=== PATIENT | female | born 2000 | race African-American/Black ===

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

== ENCOUNTER 2019-04-08 15:24 | Observation (INO) ==
[2019-04-08] MEDS ORDERED: NORMAL SALINE 1,000 ML IV ONE ×2 (16:29→19:42)
[2019-04-08 16:47] LABS: Hematocrit 41.4 % (37.0-47.0); Hemoglobin 13.7 gm/dL (12.5-16.0); Mean Cell Volume 84.1 fl (78-100); Mean Corpuscular Hemoglobin 27.8 pg (27-31); Mean Corpuscular Hgb Conc 33.1 g/dl (32-36); Mean Platelet Volume 10.1 fl (8-12.5); Neutrophil # 11.5 K/mm3 (1.3-6.0); Neutrophil % 81.5 % (42-75.0); Platelet Count 413 K/mm3 (150-450); Red Blood Count 4.92 M/mm3 (4.2-5.4); Red Cell Distribution Width 13.9 % (11.5-14.0); White Blood Count 14.1 K/mm3 (4.0-10.5)
--- NOTE | 2019-04-08 16:56 | ERNOTE ---
<Meredith Oliva - Last Filed: 04/08/19 21:07> Date of Service: 04/08/19 Time Seen by Provider: 04/08/19 16:16 Stated Complaint: sob Immunizations: IMMUNIZATION HX Immunizations Up to Date Yes History of Influenza Vaccine No Hx Pneumococcal Vaccination No Allergies/Adverse Reactions: Allergies No Known Allergies Allergy (Verified 04/08/19 22:26) Home Medications: HOME MEDICATIONS levonorgestrel 20 mcg/24 hours (5 yrs) 52 mg intrauterine device INTRAUTERINE ea 02/19/19 [Last Taken Unknown] nifedipine ER 60 mg tablet,extended release 60 mg PO DAILY #90 tab 02/19/19 [Last Taken Unknown] - History of Present Ilness Narrative: Patient is a 18 years old female who presented complaining of shortness of breath, coughing blood, since last evening. Patient is 5 months , having an IUD for 2 months, and being a smoker. On arrival patient was found to be hypoxic at 89% and tachycardic in the 140s. She denies having previous C- section, and no history of DVT, no family history of vascular problems. Timing: constant Severity: moderate Review of Systems - Review of Systems Constitutional: Present: no symptoms reported. Absent: fever, chills EYE: Present: no symptoms reported ENT: Present: no symptoms reported Respiratory: Present: shortness of breath, cough Gastrointestinal/Abdominal: Present: no symptoms reported Genitourinary: Present: no symptoms reported Musculoskeletal: Present: no symptoms reported Skin: Present: no symptoms reported Neurological: Present: no symptoms reported Endocrine: Present: no symptoms reported Hematologic/Lymphatic: Present: no symptoms reported Psych: Present: no symptoms reported All Other Systems: All systems neg except as marked Medical History (Updated 04/08/19 @ 21:00 by Meredith Oliva MD) Gestational diabetes (Acute) Pt did not bring any FSBS. Anemia GERD (gastroesophageal reflux disease) Insufficient care Noncompliance Recurrent UTI Surgical History: Surgical History (Updated 01/31/18 @ 14:49 by Rommel Couch RN) No history of previous surgery Family History: Family History (Updated 01/31/18 @ 14:51 by Rommel Couch RN) Brother Alive and well Father Alive and well Mother Diabetes diet controlled Sister Alive and well Social History: (Last Reviewed 04/08/19 @ 15:52 by Barbie Castellon RN) Social History: Marital status: Single household members: family number of children: 1 current occupational status: unemployed current occupation: Homemaker Highest education level completed: high school graduate Service: No Tobacco: Smoking Status: Current some day smoker Alcohol: alcohol intake: never Substance Use: substance use type: does not use Dietary Habits: caffeine: No Exercise: frequency: daily Physical Exam - Physical Exam General Appearance: Present: wd/wn, moderate distress Ears, Nose, Throat: Present: normal ENT inspection Neck: Present: normal inspection Respiratory: Present: no respiratory distress, decreased breath sounds, other - tachypneic Cardiovascular/Chest: Present: no murmur, tachycardia Gastrointestinal/Abdominal: Present: normal bowel sounds, nontender, no organomegaly Back Exam: Present: normal inspection, normal range of motion Extremity Exam: Present: normal inspection, normal range of motion Neurological Exam: Present: alert, oriented, normal mood/affect Skin Exam: Present: normal color Lymphatic Exam: Present: no adenopathy Progress - Results and Orders Patient's Lab Results:: I have reviewed the patient's lab results. - Vital Signs Patient's Vital Signs:: I have reviewed the patient's vital signs. Vital Signs: Vital Signs 04/08/19 15:48 Temperature 37.5 C Pulse Rate 140 H Respiratory Rate 26 H Blood Pressure 152/60 H O2 Sat by Pulse Oximetry 90 L - CT/Ultrasound CT/Ultrasound Narrative: X-RAY REPORT ~[id number] CT/CTA Chest~ Exam Date: 04/08/2019 17:36 Ordering Physician: Meredith Oliva MD HISTORY: shortness of breath Additional history from technologist: PATIETNT WITH SHORTNESS OF BREATH SINCE LAST NIGHT. TACHYCARDIC, HYPOXIC UPON ER ARRIVAL. COUGHING UP BLOOD SINCE YESTERDAY. PATIENT RECEIVED 90ML OF ISOVUE-370 VIA 18G IV. TECHNIQUE: Multiple thin-section contrast-enhanced axial CT images of the chest were obtained after rapid infusion of intravenous contrast material, according to pulmonary angiography protocol. Coronal maximal intensity projection (MIP) images were also submitted for interpretation. Dose reduction techniques using the adjustment of the mA and/or kV according to patient size and/or use of AEC or iterative reconstruction were used in the acquisition of this exam. COMPARISONS: None available. FINDINGS: CTA Chest: Pulmonary Arteries: Diagnostic Quality (for pulmonary arteries): Opacification of the pulmonary arterial branches is adequate. The breath hold is adequate. There is streak artifact from contrast material within the superior vena cava, which affects the adjacent pulmonary arteries. No definite filling defects are noted to suggest pulmonary thromboembolism. No definite axial CT image findings of right heart strain. Aorta: Thoracic aorta unremarkable without acute findings. Multiple artifacts related to cardiac motion and streak artifact from contrast in the adjacent superior vena cava noted. Mediastinum: No mediastinal mass or lymphadenopathy noted. There is a triangular soft tissue density structure within the anterior mediastinum most likely residual thymic tissue in a patient of this age. Heart: No significant pericardial effusion noted. Lung Parenchyma: The lung parenchyma demonstrates no focal consolidation. The lungs are symmetrically hyperinflated, and there is relatively hyperlucent appearance of the lungs diffusely throughout. Central Airways: The trachea appears to be grossly patent. Peripheral bronchial wall thickening noted. Opacification of the bilateral lower lobe basal segmental subsegmental bronchi suggestive of mucus plugging. Pleural Spaces: No pneumothorax or pleural effusions present. Bones: Bones are grossly intact. Chest Wall/Axillae: Anterior chest wall is grossly unremarkable. Axillary regions are also grossly normal. Upper Abdomen: Visualized portions of the liver demonstrates multiple small enhancing lesions. Decreased attenuation of liver parenchyma suggestive of fatty liver. IMPRESSION: 1. Negative for acute pulmonary thromboembolism. 2. Negative for acute thoracic aortic finding. 3. Hyperlucent and hyperinflated lungs, with peripheral bronchial wall thickening noted. Correlate clinically for acute or chronic bronchitis or reactive airways disease. Mucus plugging of the bilateral lower lobe posterior subsegmental bronchi. 4. Anterior mediastinal structure most likely thymic tissue, but consider follow-up chest CT in 3-6 months. 5. Incidental note of fatty liver, with multiple small enhancing lesions. These are of unknown clinical significance, and may reflect multiple small flash filling hemangiomas or focal nodular hyperplasia, but if the patient is on control pills, consider possible hepatic adenomas. Recommend further evaluation of the liver by MRI of the abdomen without and with contrast liver mass protocol on a nonemergent basis. If MRI is contraindicated, recommend CT of the abdomen without and with contrast liver mass protocol. Electronically signed by Rickey Man M.D.. Rickey Man MD Dict: 04/08/191814 Typed: 04/08/19 1815/ 04/08/19 1840 04/08/19 1842 , - Progress/Reassessment Chief Complaint: Upper Respiratory Symptoms Progress Note-Subjective: 04/08/19 19:20 - CT chest is negative for PE, second look at initial EKG is suspicious for atrial flutter. I am repeating EKG and giving diltiazem to patient. - Transfer of Care Physician Sign Out: Meredith Oliva Receiving Physician: Marcus Fernandez Plan - Plan Plan: Patient is a 18 years old female who presented tachycardic, tachypneic, hypoxic, CT chest ruled out pulmonary emboli however revealed bilateral mucous plug in the lower lobe, this explain her hypoxia. She was diagnosed with pneumonia and put on ceftriaxone, and azithromycin. She received in the ED 2 L of IV fluid which improved her tachycardia from the 140s to the 120s. At patient was signed out to Dr. Fernandez at 910 pm. Departure Clinical Impression: Tachycardia, Hypoxia, Bilateral pneumonia, Mucus plugging of bronchi - Departure Disposition: Still a patient Condition: Serious <Marcus Fernandez - Last Filed: 04/09/19 06:35> Immunizations: IMMUNIZATION HX Immunizations Up to Date Yes History of Influenza Vaccine No Hx Pneumococcal Vaccination No Medical History (Updated 04/08/19 @ 21:09 by Meredith Oliva MD) Gestational diabetes (Acute) Pt did not bring any FSBS. Anemia GERD (gastroesophageal reflux disease) Insufficient care Noncompliance Recurrent UTI Surgical History: Surgical History (Updated 01/31/18 @ 14:49 by Rommel Couch RN) No history of previous surgery Family History: Family History (Updated 01/31/18 @ 14:51 by Rommel Couch RN) Brother Alive and well Father Alive and well Mother Diabetes diet controlled Sister Alive and well Social History: (Last Reviewed 04/08/19 @ 22:26 by Pavel Billy RN) Social History: Marital status: Single household members: family number of children: 1 current occupational status: unemployed current occupation: Homemaker Highest education level completed: high school graduate Service: No Tobacco: Smoking Status: Current some day smoker Alcohol: alcohol intake: never Substance Use: substance use type: does not use Dietary Habits: caffeine: No Exercise: frequency: daily Physical Exam - Physical Exam General Appearance: Present: wd/wn, moderate distress Respiratory: Present: decreased breath sounds - rough sounds Cardiovascular/Chest: Present: no murmur, tachycardia Progress - Results and Orders Patient's Lab Results:: I have reviewed the patient's lab results. - Vital Signs Vital Signs: Vital Signs 04/08/19 15:48 04/08/19 15:51 04/08/19 16:21 Temperature 37.5 C Pulse Rate 140 H 73 133 H Respiratory Rate 26 H 22 H 24 H Blood Pressure 152/60 H 162/83 H O2 Sat by Pulse Oximetry 90 L 94 92 L 04/08/19 16:51 04/08/19 17:25 04/08/19 17:51 Temperature Pulse Rate 130 H 127 H Respiratory Rate 20 Blood Pressure 137/68 O2 Sat by Pulse Oximetry 93 93 04/08/19 19:30 Temperature Pulse Rate 124 H Respiratory Rate 24 H Blood Pressure 137/68 O2 Sat by Pulse Oximetry 93 - EKG EKG #1 EKG: supraventricular tachycardia - sinus tach, nonspecific ST T wave changes EKG read: Reviewed by me - Initially seen by Dr. Oliva EKG #2 EKG: supraventricular tachycardia - sinus tach, nonspecific ST T wave changes EKG read: Reviewed by me - Initially seen by Dr. Oliva. - Progress/Reassessment Progress:: Unchanged Progress Note-Subjective: 04/08/19 21:[address] Oliva and we felt that the CT had significant evidence for pneumonia with bronchial plugging. 04/08/19 21:[address] Benitez and he agrees with admission.
[2019-04-08 17:00] LABS: INR 1.04 INR (0.92-1.08); Prothrombin Time (Patient) 10.3 Seconds (9.1-10.7)
[2019-04-08 17:06] LABS: Troponin I Less than 0.017 ng/mL (0.00-0.10)
[2019-04-08 17:11] LABS: ALT 12 U/L (19-67); AST 14 U/L (0-48); Albumin * 4.3 gm/dl (3.4-5.0); Alkaline Phosphatase * 151 U/L (50-170); Anion Gap 18.3 mmol/L (6.8-13.8); Bilirubin, Total 0.5 mg/dL (0.0-1.1); Blood Urea Nitrogen 9 mg/dL (3-23); CK Total * 140 U/L (0-259); CKMB 0.9 ng/mL (0.0-9.0); Ca. Corrected For Albumin 8.3 mg/dL (8.4-10.2); Calcium * 8.9 mg/dL (7.9-10.9); Carbon Dioxide 22.2 mmol/L (24-32.6); Chloride 98 mmol/L (97-106); Glucose * 315 mg/dL (70-110); Potassium 3.5 mmol/L (3.4-4.6); Sodium 135 mmol/L (132-142); Total Protein 8.3 gm/dL (6.2-8.2)
[2019-04-08 17:20] LABS: Urine Bilirubin Negative (NEGATIVE); Urine Blood Negative /ul (NEGATIVE); Urine Ketone 15 mg/dL (NEGATIVE); Urine Nitrite Negative (NEGATIVE); Urine Protein Negative (NEGATIVE); Urine Specific Gravity 1.015 SP.GR. (1.005-1.010); Urine Urobilinogen Normal (NORMAL)
[2019-04-08 17:27] LABS: Urine Appearance Clear (CLEAR); Urine Bacteria 1+; Urine Color Yellow; Urine RBC None Seen /hpf (0-5); Urine WBC None Seen /hpf (0-5)
[2019-04-08] MEDS ORDERED: DILTIAZEM HCL 5 MG/ML VIAL IV ONE ×2 (19:32→19:47)
[2019-04-08 19:58] LABS: Cocaine Ur Negative (NEGATIVE); Urine Barbiturate Negative (NEGATIVE); Urine Benzodiazepines Negative (NEGATIVE); Urine Opiates Negative (NEGATIVE); Urine PCP Negative (NEGATIVE)
[2019-04-08 19:59] LABS: Urine THC Positive (NEGATIVE)
[2019-04-08] MEDS ORDERED: cefTRIAXone SODIUM 1,000 MG/100 ML BAG IV ONE (21:03)
[2019-04-08] MEDS ORDERED: ALBUTEROL SULFATE/IPRATROPIUM 3 ML NEBU IH SCH (23:45)
[2019-04-09] MEDS: ALBUTEROL SULFATE/IPRATROPIUM 3 ML NEBU IH SCH ×3 (00:20→12:49)
[2019-04-09] MEDS ORDERED: predniSONE 20 MG TABLET PO ONE (08:41)
[2019-04-09] MEDS ORDERED: NIFEdipine 30 MG TAB.SR.24H PO SCH (09:00)
[2019-04-09] MEDS ORDERED: AZITHROMYCIN 250 MG TABLET PO ONE (09:00)
[2019-04-09] MEDS: ACETAMINOPHEN 500 MG TABLET PO PRN ×2 (09:55)
--- NOTE | 2019-04-09 11:45 | HPDIS ---
Chief Complaint - Chief Complaint Date of Service: 04/09/19 Time of Service: 08:15 Chief Complaint: Shortness of breath, dizziness History of Present Illness: Ej is a 18 yo female that presented to the [facility] ER with chest pain and shortness of breath. She was initially 89% on room air. She was placed on oxygen to keep sats >93% which took 2lpm. She is about 5 months and there was concern for possible PE. CT was negative for pulmonary embolism but did show mucus plugging present. No pneumonia present. She reports symptoms started within the last two days and were sudden. She denies sick contacts, fever, or chills. Medical History (Updated 04/09/19 @ 11:45 by Thai Benitez DO) Gestational diabetes (Acute) Pt did not bring any FSBS. Anemia GERD (gastroesophageal reflux disease) Insufficient care Noncompliance Recurrent UTI Surgical History: Surgical History (Updated 04/09/19 @ 11:45 by Thai Benitez DO) No history of previous surgery Family History: Family History (Updated 01/31/18 @ 14:51 by Rommel Couch RN) Brother Alive and well Father Alive and well Mother Diabetes diet controlled Sister Alive and well Social History: (Last Reviewed 04/08/19 @ 22:26 by Pavel Billy RN) Social History: Marital status: Single household members: family number of children: 1 current occupational status: unemployed current occupation: Homemaker Highest education level completed: high school graduate Service: No Tobacco: Smoking Status: Current some day smoker Alcohol: alcohol intake: never Substance Use: substance use type: does not use Dietary Habits: caffeine: No Exercise: frequency: daily Review Of Systems (GEN) - Review of Systems Generalized/Overall Review: Present: Weakness. Absent: Chills, Fever EENTM: Present: No Symptoms Reported Respiratory: Present: Cough, Shortness of Breath Cardiac: Present: Chest Pain, Palpitations. Absent: Edema Abdominal: Present: Nausea. Absent: Vomiting, Hematemesis, Abdominal Pain, Constipation Genitourinary: Present: No Symptoms Reported Musculoskeletal: Present: No Symptoms Reported Neurological: Present: No Symptoms Reported Skin: Present: No Symptoms Reported Immunizations: IMMUNIZATION HX Immunizations Up to Date Yes History of Influenza Vaccine No Hx Pneumococcal Vaccination No Allergies/Adverse Reactions: Allergies Allergy/AdvReac Type Severity Reaction Status Date / Time No Known Allergies Allergy Verified 04/08/19 22:26 Home Medications: HOME MEDICATIONS levonorgestrel 20 mcg/24 hours (5 yrs) 52 mg intrauterine device INTRAUTERINE ea 02/19/19 [Last Taken Unknown] nifedipine ER 60 mg tablet,extended release 60 mg PO DAILY #90 tab 02/19/19 [Last Taken Unknown] Azithromycin [Zithromax] 250 mg PO DAILY #4 tab 04/09/19 [Last Taken Unknown] guaiFENesin [Mucinex] 1,200 mg PO BID tablet.sa 04/09/19 [Last Taken Unknown] predniSONE [Prednisone] 2 tab PO DAILY #14 tab 04/09/19 [Last Taken Unknown] Exam - Exam Vital Signs: Vital Signs - Last Taken Temp 36.7 C 04/09/19 10:05 Pulse 107 H 04/09/19 10:05 Resp 20 04/09/19 10:05 BP 148/67 H 04/09/19 10:05 Pulse Ox 95 04/09/19 10:05 Constitutional: Present: Alert, Oriented x3, Cooperative, Other - wearing oxygen via nasal canula Eye Exam: bilateral eye: normal inspection Respiratory: Present: wheezing Cardiovascular/Chest: Present: no murmur, tachycardia Peripheral Pulses: radial (R): 2+, radial (L): 2+ Abdomen: Present: Normal bowel sounds, soft, nontender, nondistended Skin Exam: Present: normal color, warm/dry, no cyanosis Appearance: Present: appropriate appearance, appropriate insight Eye contact: Present: cooperative, good eye contact, normal speech Diagnostic Studies: Abnormal Lab Results 04/08/19 04/08/19 04/08/19 Range/Units 16:40 16:40 16:53 WBC 14.1 H (4.0-10.5) K/mm3 Immature Gran # (Auto) 0.06 H (0.000-0.0310) K/mm3 Neutrophils % 81.5 H (42-75.0) % Lymphocytes % 8.7 L (20-51) % Neutrophils # 11.5 H (1.3-6.0) K/mm3 Lymphocytes # 1.23 L (1.5-3.5) k/mm3 pCO2 (32.0-45.0) mmHg pO2 (83.0-108.0) mmHg HCO3 (21.0-28.0) mmol/L Total CO2 (19.0-24.0) mmol/L Base Excess (-2.0-3.0) mmol/L ABG O2 Sat (Measured) (94.0-98.0) % Carbon Dioxide 22.2 L (24-32.6) mmol/L Anion Gap 18.3 H (6.8-13.8) mmol/L Random Glucose 315 H (70-110) mg/dL Calcium Adj for Albumin 8.3 L (8.4-10.2) mg/dL ALT 12 L (19-67) U/L Total Protein 8.3 H (6.2-8.2) gm/dL Urine Glucose (UA) >=1000 H (NEGATIVE) mg/dL Urine Bacteria 1+ H (NONE) Urine Marijuana (THC) (NEGATIVE) 04/08/19 04/08/19 Range/Units 16:53 17:26 WBC (4.0-10.5) K/mm3 Immature Gran # (Auto) (0.000-0.0310) K/mm3 Neutrophils % (42-75.0) % Lymphocytes % (20-51) % Neutrophils # (1.3-6.0) K/mm3 Lymphocytes # (1.5-3.5) k/mm3 pCO2 27.3 L (32.0-45.0) mmHg pO2 62.3 L (83.0-108.0) mmHg HCO3 17.8 L (21.0-28.0) mmol/L Total CO2 18.7 L (19.0-24.0) mmol/L Base Excess -5.0 L (-2.0-3.0) mmol/L ABG O2 Sat (Measured) 93.0 L (94.0-98.0) % Carbon Dioxide (24-32.6) mmol/L Anion Gap (6.8-13.8) mmol/L Random Glucose (70-110) mg/dL Calcium Adj for Albumin (8.4-10.2) mg/dL ALT (19-67) U/L Total Protein (6.2-8.2) gm/dL Urine Glucose (UA) (NEGATIVE) mg/dL Urine Bacteria (NONE) Urine Marijuana (THC) Positive H (NEGATIVE) Laboratory Results WBC 14.1 K/mm3 (4.0-10.5) H 04/08/19 16:40 RBC 4.92 M/mm3 (4.2-5.4) 04/08/19 16:40 Hgb 13.7 gm/dL (12.5-16.0) 04/08/19 16:40 Hct 41.4 % (37.0-47.0) 04/08/19 16:40 MCV 84.1 fl (78-100) 04/08/19 16:40 MCH 27.8 pg (27-31) 04/08/19 16:40 MCHC 33.1 g/dl (32-36) 04/08/19 16:40 RDW 13.9 % (11.5-14.0) 04/08/19 16:40 Plt Count 413 K/mm3 (150-450) 04/08/19 16:40 MPV 10.1 fl (8-12.5) 04/08/19 16:40 Immature Gran % (Auto) 0.40 % (0.001-0.429) 04/08/19 16:40 Immature Gran # (Auto) 0.06 K/mm3 (0.000-0.0310) H 04/08/19 16:40 81.5 % (42-75.0) H 04/08/19 16:40 8.7 % (20-51) L 04/08/19 16:40 7.4 % (0.0-9) 04/08/19 16:40 1.6 % (0.0-3.0) 04/08/19 16:40 0.4 % (0.0-1.0) 04/08/19 16:40 Nucleated RBC % 0.0 k/mm3 (0-1) 04/08/19 16:40 11.5 K/mm3 (1.3-6.0) H 04/08/19 16:40 1.23 k/mm3 (1.5-3.5) L 04/08/19 16:40 1.0 k/mm3 (0.0-1.0) 04/08/19 16:40 0.2 k/mm3 (0.0-0.7) 04/08/19 16:40 Absolute Basophils 0.1 k/mm3 (0.0-0.1) 04/08/19 16:40 PT 10.3 Seconds (9.1-10.7) 04/08/19 16:40 INR (Anticoag Therapy) 1.04 INR (0.92-1.08) 04/08/19 16:40 PTT ([place]) 29.0 Seconds (24-32) 04/08/19 16:40 pCO2 27.3 mmHg (32.0-45.0) L 04/08/19 17:26 pO2 62.3 mmHg (83.0-108.0) L 04/08/19 17:26 HCO3 17.8 mmol/L (21.0-28.0) L 04/08/19 17:26 Total CO2 18.7 mmol/L (19.0-24.0) L 04/08/19 17:26 Base Excess -5.0 mmol/L (-2.0-3.0) L 04/08/19 17:26 ABG pH 7.43 (7.35-7.45) 04/08/19 17:26 ABG O2 Sat (Measured) 93.0 % (94.0-98.0) L 04/08/19 17:26 Sodium 135 mmol/L (132-142) 04/08/19 16:40 138 mmol/L (130-142) 04/08/19 16:40 Potassium 3.5 mmol/L (3.4-4.6) 04/08/19 16:40 Chloride 98 mmol/L (97-106) 04/08/19 16:40 Carbon Dioxide 22.2 mmol/L (24-32.6) L 04/08/19 16:40 18.3 mmol/L (6.8-13.8) H 04/08/19 16:40 BUN 9 mg/dL (3-23) 04/08/19 16:40 0.75 mg/dL (0.4-1.4) 04/08/19 16:40 Est GFR (Non-Af Amer) 127 mL/min (60-130) 04/08/19 16:40 12.0 (9.0-21.6) 04/08/19 16:40 315 mg/dL (70-110) H 04/08/19 16:40 1.8 mmol/L (0.4-2.0) 04/08/19 16:40 Calcium 8.9 mg/dL (7.9-10.9) 04/08/19 16:40 Calcium Adj for Albumin 8.3 mg/dL (8.4-10.2) L 04/08/19 16:40 0.5 mg/dL (0.0-1.1) 04/08/19 16:40 AST 14 U/L (0-48) 04/08/19 16:40 ALT 12 U/L (19-67) L 04/08/19 16:40 151 U/L (50-170) 04/08/19 16:40 140 U/L (0-259) 04/08/19 16:40 CK-MB (CK-2) 0.9 ng/mL (0.0-9.0) 04/08/19 16:40 CK-MB (CK-2) Rel Index 0.6 (0.0-3.6) 04/08/19 16:40 Less than 0.017 ng/mL (0.00-0.10) 04/08/19 16:40 8.3 gm/dL (6.2-8.2) H 04/08/19 16:40 4.3 gm/dl (3.4-5.0) 04/08/19 16:40 Yellow 04/08/19 16:53 Clear (CLEAR) 04/08/19 16:53 6.0 pH (5.0-7.0) 04/08/19 16:53 Ur Specific [place] 1.015 SP.GR. (1.005-1.010) 04/08/19 16:53 Negative mg/dL (NEGATIVE) 04/08/19 16:53 >=1000 mg/dL (NEGATIVE) H 04/08/19 16:53 15 mg/dL (NEGATIVE) 04/08/19 16:53 Negative /ul (NEGATIVE) 04/08/19 16:53 Negative (NEGATIVE) 04/08/19 16:53 Negative mg/dl (NEGATIVE) 04/08/19 16:53 Normal EU/dl (NORMAL) 04/08/19 16:53 Ur Leukocyte Esterase Negative /ul (NEGATIVE) 04/08/19 16:53 None seen /hpf (0-5) 04/08/19 16:53 None seen /hpf (0-5) 04/08/19 16:53 Ur Epithelial Cells 0-5 /hpf (0-5) 04/08/19 16:53 1+ (NONE) H 04/08/19 16:53 No culture indicated 04/08/19 16:53 Negative (NEGATIVE) 04/08/19 16:53 Negative (NEGATIVE) 04/08/19 16:53 Ur Phencyclidine Scrn Negative (NEGATIVE) 04/08/19 16:53 Urine Amphetamine Negative (NEGATIVE) 04/08/19 16:53 U Benzodiazepines Scrn Negative (NEGATIVE) 04/08/19 16:53 Negative (NEGATIVE) 04/08/19 16:53 Positive (NEGATIVE) H 04/08/19 16:53 Assessment/Plan - Narrative Narrative: Ej is a 18 yo female with acute respiratory failure with hypoxia of 89% on room air initially due to mucus plugging seen on Chest CT. There was no evidence of pneumonia or pulmonary embolism. Will plan to treat with mucus plugging and bronchitis with azithromycin, prednisone, albuterol, cornet, incentive spirometer, and mucinex. Will work on weaning from oxygen. I suspect she will improve over the next 12 hours and be able to be discharged to home later today if vitals are stable after weaning off oxygen and able to ambulate without hypoxia. - Assessment/Plan (1) Acute respiratory failure Problem: Acute (2) Mucus plugging of bronchi Problem: Acute (3) Bronchitis Problem: Acute (1) Acute respiratory failure Problem: Acute (2) Mucus plugging of bronchi Problem: Acute (3) Bronchitis Problem: Acute Date of Discharge:: 04/09/19 Description of Stay: Ej was admitted for acute respiratory failure secondary to bronchitis and mucus plugging. She was given oxygen via nasal canula at 2lpm. She was treated with azithromycin, prednisone, mucinex, albuterol nebulizer, cornet, incentive spirometer, and encouraged to drink water to help thin secretions. With this treatment oxygen was weaned off to room air and she was able to ambulate without oxygen. She is doing well and request home discharge. I will discharge to home with prescriptions to complete course of prednisone for 7 days and azithromycin for a total of 5 days. She may continue to use mucinex and drink water. Procedures Performed: none Results and Findings: Lab Pending Results 04/08/19 16:40: PT 10.3, INR (Anticoag Therapy) 1.04, PTT ([place]) 29.0 04/08/19 16:40: Lactic Acid, Venous 1.8 04/08/19 16:40: WBC 14.1 H, RBC 4.92, Hgb 13.7, Hct 41.4, MCV 84.1, MCH 27.8, MCHC 33.1, RDW 13.9, Plt Count 413, MPV 10.1, Immature Gran % (Auto) 0.40, Immature Gran # (Auto) 0.06 H, Neutrophils % 81.5 H, Lymphocytes % 8.7 L, Monocytes % 7.4, Eosinophils % 1.6, Basophils % 0.4, Nucleated RBC % 0.0, Neutrophils # 11.5 H, Lymphocytes # 1.23 L, Monocytes # 1.0, Eosinophils # 0.2, Absolute Basophils 0.1 04/08/19 16:40: Sodium 135, Plasma Sodium 138, Potassium 3.5, Chloride 98, Carbon Dioxide 22.2 L, Anion Gap 18.3 H, BUN 9, Creatinine 0.75, Est GFR (Non-Af Amer) 127, BUN/Creatinine Ratio 12.0, Random Glucose 315 H, Calcium 8.9, Calcium Adj for Albumin 8.3 L, Total Bilirubin 0.5, AST 14, ALT 12 L, Alkaline Phosphatase 151, Creatine Kinase 140, CK-MB (CK-2) 0.9, CK-MB (CK-2) Rel Index 0.6, Troponin I Less than 0.017, Total Protein 8.3 H, Albumin 4.3 04/08/19 16:53: Urine Color Yellow, Urine Appearance Clear, Urine pH 6.0, Ur Specific [place] 1.015, Urine Protein Negative, Urine Glucose (UA) >=1000 H, Urine Ketones 15, Urine Blood Negative, Urine Nitrate Negative, Urine Bilirubin Negative, Urine Urobilinogen Normal, Ur Leukocyte Esterase Negative, Urine RBC None seen, Urine WBC None seen, Ur Epithelial Cells 0-5, Urine Bacteria 1+ H, Urine Culture Comments No culture indicated 04/08/19 16:53: Urine Opiates Screen Negative, Barbiturate Screen Negative, Ur Phencyclidine Scrn Negative, Urine Amphetamine Negative, U Benzodiazepines Scrn Negative, Urine Cocaine Screen Negative, Urine Marijuana (THC) Positive H 04/08/19 17:26: pCO2 27.3 L, pO2 62.3 L, HCO3 17.8 L, Total CO2 18.7 L, Base Excess -5.0 L, ABG pH 7.43, ABG O2 Sat (Measured) 93.0 L Discharge Location: Home Disposition: Home self-care Condition: Good Discharge Activity: Activity as tolerated Discharge Diet: Consistent carbs Referrals: Thai Benitez DO [Staff Physician] - One Week Problem Oriented Discharge Instructions to Patient/Family: Acute Bronchitis, [id number] Additional Patient Instructions (free text): Take and use cornet and incentive spirometer at home every hour as needed to help cough up mucus. Prescriptions (Any new or edited meds): predniSONE [Prednisone] 2 tab PO DAILY #14 tab Azithromycin [Zithromax] 250 mg PO DAILY #4 tab Complete Home Medications List: Complete Home Medication List: levonorgestrel 20 mcg/24 hours (5 yrs) 52 mg intrauterine device INTRAUTERINE ea 02/19/19 nifedipine ER 60 mg tablet,extended release 60 mg PO DAILY #90 tab 02/19/19 Azithromycin [Zithromax] 250 mg PO DAILY #4 tab 04/09/19 guaiFENesin [Mucinex] 1,200 mg PO BID tablet.sa 04/09/19 predniSONE [Prednisone] 2 tab PO DAILY #14 tab 04/09/19
[2019-04-09 18:02] VITALS: BP 144/70
== END 2019-04-09 17:30 | disposition home or self-care (01) ==
LOC: ER 15:24 → INTOOBSV 21:49 → MS 21:49
PROVIDERS: ADMIT Family Medicine; ATTEND Family Medicine
CPT/HCPCS: 36415; 36600; 71275; 80053; 80307; 81001; 82550; 82553; 82803; 83605; 84484; 85025; 85610; 85730; 87040; 93005; 94640; 94664; 96365; 99285; G0378; Q9967